=== PATIENT | male | born 1945 | race Caucasian/White ===

== ENCOUNTER 2022-08-13 14:25 | Emergency (ER) | payer BC ==
[~2022-08-13] VITALS: Ht 182.9 cm; Wt 102.7 kg
[2022-08-13] MEDS ORDERED: ATOR1TAB21 PO (14:35)
[2022-08-13 16:02] LABS: HEMATOCRIT 46.6 % (42.0-52.0); HEMOGLOBIN 14.9 g/dl (13.5-17.5); MEAN CORPUSCULAR HEMOGLOBIN 28.4 pg (27.0-33.0); MEAN CORPUSCULAR VOLUME 88.9 fl (80.0-96.0); PLATELET COUNT, AUTOMATED 263 10^3/uL (150-450); RED BLOOD COUNT 5.24 10^6/uL (4.30-6.10); WHITE BLOOD COUNT 5.5 10^3/uL (4.0-10.0)
[2022-08-13 16:23] LABS: BLOOD UREA NITROGEN 18 MG/DL (9-23); CALCIUM LEVEL 9.4 MG/DL (8.3-10.6); CARBON DIOXIDE LEVEL 28 MMOL/L (20-31); CHLORIDE LEVEL 110 MMOL/L (98-107); CREATININE FOR GFR 0.87 MG/DL (0.70-1.30); GLOMERULAR FILTRATION RATE > 60.0 (>42); GLUCOSE, FASTING 89 MG/DL (74-106); POTASSIUM SERUM 4.7 MMOL/L (3.5-5.1); SODIUM LEVEL 143 MMOL/L (136-145)
[2022-08-13 16:26] LABS: THYROID STIMULATING HORMONE 1.456 uIU/ML (0.55-4.78)
[2022-08-13] MEDS ORDERED: [UNRECOGNIZED DRUG - OTHER] (18:39)
[2022-08-13 19:00] VITALS: BP 138/73; TEMP 97.8; O2SAT 97
== END 2022-08-13 19:05 | disposition home or self-care (01) ==
LOC: M ED 14:25
DX: H81.4 Vertigo of central origin (principal); Z79.899 Other long term (current) drug therapy